=== PATIENT | female | born 1950 | race Caucasian/White ===

== ENCOUNTER → 2017-01-17 | Outpatient (CLI) | payer BC ==
[~2017-01-17] MED LIST: ALEVE220 MG PO; CLARITIN10 MG PO; MULTIPLE VITAM1 EAC1 PO; PREMARIN0.45 MG PO; THERA-TABS M C1 EACH OR
== END ==
LOC: RAD 02:20
DX: Z12.31 Encounter for screening mammogram for malignant neoplasm of breast (principal)

== ENCOUNTER → 2018-02-02 | Outpatient (CLI) | payer BC | LOC: RAD 01-18 01:06 | DX: Z12.31 Encounter for screening mammogram for malignant neoplasm of breast (principal) ==

== ENCOUNTER → 2018-06-14 | Outpatient (CLI) | payer OTHER | LOC: RAD 15:30 | DX: R05 Cough (principal); G89.29 Other chronic pain ==

== ENCOUNTER 2019-01-21 08:55 | Inpatient (IN) | payer OTHER ==
[~2019-01-21] VITALS: Ht 167.6 cm; Wt 54.4 kg
[2019-01-21 15:12] LABS: ABSOLUTE NEUTROPHILS 10.4 thou/uL (1.4-8.2); BASOPHILS 0.2 % (0.0-2.0); HEMATOCRIT 36.2 % (37.0-47.0); HEMOGLOBIN 12.3 gm/dL (12.0-15.0); LYMPHOCYTES 6.5 % (24.0-44.0); MCH 34.9 pg (26.0-34.0); MCV 102.7 fL (80.0-100.0); MONOCYTES 8.3 % (1.0-8.0); PLATELET COUNT 247 thou/uL (150-400); RBC 3.53 mil/uL (4.20-5.00); RDW 11.7 % (10.5-14.5); WBC 12.3 thou/uL (4.0-11.0)
[2019-01-21 15:27] LABS: PROTIME 10.6 Seconds (9.3-11.4)
[2019-01-21 15:32] LABS: ALBUMIN 3.7 g/dL (3.4-5.0); CALCIUM 9.2 mg/dL (8.5-10.1); CREATININE 0.6 mg/dL (0.6-1.0); POTASSIUM 3.4 mmol/L (3.5-5.1); TOTAL BILIRUBIN 0.9 mg/dL (<0.1-1.0); TOTAL PROTEIN 7.1 g/dL (6.4-8.2)
--- NOTE | 2019-01-21 15:49 | NUR ---
INITIAL ASSESSMENT: Pt evaluated for d/c planning needs. Reviewed chart and spoke with nurse, pt and pt's sister. Pt is alert and oriented. Pt lives in house with spouse. 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 Pt has walker and w/c at home. Pt has not had home health in the past. Pt plans on returning home on d/c from hospital. Will remain available to assist as needed.
[2019-01-21 18:18] VITALS: BP 105/62
[2019-01-21 20:53] VITALS: BP 117/52
[2019-01-22] VITALS (8 sets, daily range): BP systolic 114–152; BP diastolic 58–83
--- NOTE | 2019-01-22 04:30 | NUR ---
ASSUMED PT CARE AROUND 1900. A&OX4. C/O RIGHT ARM AND RIGHT PELVIC PAIN. PO PAIN MEDICATION GIVEN INDICATED. PT SLEPT OFF AND ON DURING THE NIGHT. CALLED OUT APPROPRIATELY FOR BEDPAN. PT C/O PELVIC PAIN WITH TURNING IN BEDL; SHE DID NOT WANT TO BE MOVED MUCH BY NURSING STAFF. PT IS ABLE TO HELP MOVE HERSELF IN THE BED. RIGHT ELBOW BRUISED AND SLIGHTLY SWOLLEN. FALL PRECAUTIONS IN PLACE. IVF INFUSING ORDERED. NPO SINCE MIDNIGHT FOR SURGERY TODAY. PROGRESSING SLOWLY TOWARD POC GOALS.
--- NOTE | 2019-01-22 10:52 | NUR ---
pt. care assumed 0700. a&oX4. PT HAVING AN ORIF TODAY. WENT TO SURGERY AT 1040. SPOKE TO DR. BOWEN TO RECONCILE HOME MEDS AND GET PT PN CIWA PROTOCOL AND ON A NICOTINE PATCH FOR SMOKING SENSATION. PT. IS ON BEDREST DUE TO PELIC FRACTURE. PT IS WAITING IN HER ROOM. BED LOCKED IN LOW POSITION AND CALL LIGHT WITHIN REACH.
[2019-01-22 17:35] LABS: PHOSPHORUS 3.3 mg/dL (2.5-4.9)
--- NOTE | 2019-01-22 22:18 | NUR ---
ASSESSMENT COMPLETED. PT IS ALERT AND ORIENTED. SLIGHTLY FORGETFUL. PT IS S/P R OLECRANON ORIF.SPLINT IN PLACE. PT STILL HAS ZERO FEELING IN THE R ARM SINCE GETTING THE BLOCK PRIOR TO SURGERY. THERE IS HOWEVER WARMTH AND GOOD CAP REFILL TO THE R FINGERS/HAND. HAND IS ELEVATED ON PILLOW. PT DENIES PAIN. SHE IS ON BEDREST- HAS NOT NEEDED A BEDPAN SO FAR.SCDS IN PLACE. CIWA OF ZERO AT THIS TIME.PT REPORTS FEELING CALM AND WITH NO CONCERNS. IV FLUIDS INFUSING LEJ. AFEBRILE.CALL LIGHT WITHIN REACH. WILL CONTINUE WITH POC TILL EOS.
[2019-01-23 04:44] VITALS: BP 131/68
[2019-01-23 05:37] LABS: HEMATOCRIT 28.6 % (37.0-47.0)
[2019-01-23 05:44] LABS: POTASSIUM 4.1 mmol/L (3.5-5.1)
[2019-01-23 06:04] LABS: HEMOGLOBIN 9.7 gm/dL (12.0-15.0)
--- NOTE | 2019-01-23 07:44 | NUR ---
PATIENT HAD SURGERY ON HER ELBOW YESTERDAY, WILL NEED POST-OP ORDERS BEFORE BEING ABLE TO EVALUATE.
[2019-01-23 08:07] VITALS: BP 134/73
--- NOTE | 2019-01-23 12:20 | O ---
[facility] [place] [address] OPERATIVE REPORT Name: ZAINAB COBOS Room #: 446-P ADM IN M.R.#: [id number] Admission: 01/21/19 Attend Phys: Mike Mayers MD Discharge: Date of : 48 Report #: [id number] THIS REPORT FOR: //name// CC: Javad Vázquez DATE OF SERVICE: 01/22/2019 PREOPERATIVE DIAGNOSIS: Right olecranon fracture. POSTOPERATIVE DIAGNOSIS: Right olecranon fracture. PROCEDURE: Right olecranon open reduction and internal fixation. SURGEON: Guillermo Gu MD. KILN DRAWER: Alexa Courtney. ANESTHESIA: General. ESTIMATED BLOOD LOSS: Minimal. DRAINS: No drains. TOURNIQUET TIME: 40 minutes. DESCRIPTION OF PROCEDURE: The patient was brought to the operating room, where she was placed under general anesthesia. Once under adequate general anesthesia, her right upper extremity was prepped and draped in a sterile manner. The extremity was elevated, exsanguinated, and tourniquet placed, 300 mmHg. A posterior incision over the olecranon was then made. This was dissected down through the soft tissue directly to the fracture site, any hematoma was evacuated from the fracture site, and the fracture was then subsequently reduced with a pair of K-wires. The plate from the Eloise elbow tray was then placed. Subsequent to this, a longitudinal "home run screw" was placed from the posterior olecranon and down the shaft of the ulna. This was 50 mm in length. Further fixation was achieved with 3 locking screws distally in the plate. Excellent fixation and alignment was achieved as verified under fluoroscopy. Once complete, the wound was irrigated copiously and closed with 2-0 Vicryl in subcutaneous tissues and denise were used for the skin. The wounds were dressed with Xeroform and 4 x 4s and sterile soft compressive dressing was placed along with a posterior splint. Tourniquet was let down at approximately 40 minutes. Fingers were pink and warm with good capillary [facility] [address] [place] [address] OPERATIVE REPORT Name: CHANDRIKAZAINAB Room #: 446-P ADM IN M.R.#: [id number] Admission: 01/21/19 Attend Phys: Mike Mayers MD Discharge: Date of : 48 Report #: [id number] refill. There were no complications from the procedure. The patient tolerated the procedure well and went to the recovery room without incident. <ELECTRONICALLY SIGNED> By: Guillermo Gu MD 01/23/19 1220 [id number] Guillermo Gu MD /nt
--- NOTE | 2019-01-23 16:08 | NUR ---
PATIENT SEEN BY DR. WALKER THIS DATE. PATIENT IS A CANDIDATE FOR ACUTE REHAB. REQUEST FOR AUTHORIZATION SENT TO [facility] THIS DATE. WILL AWAIT RESPONSE. THANK YOU FOR THIS REFERRAL.
[2019-01-23 16:35] VITALS: BP 158/67
[2019-01-23 19:31] VITALS: BP 157/90
[2019-01-24 05:21] VITALS: BP 157/77
[2019-01-24 06:20] LABS: URINE BILIRUBIN NEGATIVE (Negative); URINE BLOOD NEGATIVE (Negative); URINE CLARITY CLEAR; URINE COLOR YELLOW; URINE GLUCOSE-RANDOM* NEGATIVE (Negative); URINE KETONES NEGATIVE (Negative); URINE LEUKOCYTES-REFLEX NEGATIVE (Negative); URINE NITRITE-REFLEX NEGATIVE (Negative); URINE PROTEIN (DIPSTICK) NEGATIVE (Negative); URINE UROBILINOGEN 0.2 E.U./dl (0.2-1.0)
[2019-01-24 06:28] LABS: CALCIUM 8.6 mg/dL (8.5-10.1); CREATININE 0.5 mg/dL (0.6-1.0); MAGNESIUM 1.6 mg/dL (1.8-2.4); PHOSPHORUS 3.7 mg/dL (2.5-4.9); POTASSIUM 3.9 mmol/L (3.5-5.1)
[2019-01-24 07:50] VITALS: BP 146/82
[2019-01-24] MEDS ORDERED: MIRALAX17 GM PO (14:44)
[2019-01-24] MEDS ORDERED: LORAZEPAM 22 MG/1 ML IV PUSH ×2 (14:44)
[2019-01-24] MEDS ORDERED: ENOXAPARIN40 MG/0.1 SUBQ (14:44)
[2019-01-24] MEDS ORDERED: PEPCID20 MG PO (14:44)
[2019-01-24] MEDS ORDERED: LORAZEPAM 1 MG T1 MG PO ×2 (14:44)
[2019-01-24] MEDS ORDERED: NICOTINE TRANSD14 M1 TRANSDERM (14:44)
[2019-01-24] MEDS ORDERED: ACETAMINOPHEN325 M1 PO (14:44)
[2019-01-24] MEDS ORDERED: VITAMIN B-1100 M2 PO (14:44)
[2019-01-24] MEDS ORDERED: HYDROCODON-ACE1 EAC7 PO ×2 (14:44)
[2019-01-24 15:58] LABS: HEMATOCRIT 30.1 % (37.0-47.0); HEMOGLOBIN 10.1 gm/dL (12.0-15.0); MCH 35.7 pg (26.0-34.0); MCHC 33.7 g/dL (28.0-37.0); MCV 106.2 fL (80.0-100.0); RBC 2.83 mil/uL (4.20-5.00); RDW 12.2 % (10.5-14.5); WBC 10.2 thou/uL (4.0-11.0)
--- NOTE | 2019-01-24 18:27 | NUR ---
PT CARE ASSUMED AT 0700. A&Ox4. PT UP TO THE COMMODE.PT. TRANSFERRIG TO 5N. REPORT GIVEN TO WONG. PT. DISCHARGED AT 1700. PT. ON A REGULAR DIET
--- NOTE | 2019-01-29 16:07 | HC ---
[facility] [place] [address] CONSULTATION Name: ZAINAB COBOS Room #: 446-P [facility] IN M.R.#: [id number] Admission: 01/21/19 Attend Phys: Mike Mayers MD Discharge: 01/24/19 Date of : 48 Report #: [id number] THIS REPORT FOR: //name// CC: Trever Mayers DATE OF SERVICE: 01/23/2019 HISTORY OF PRESENT ILLNESS: The patient is a 68-year-old white female who had a fall at home on 01/20/2019 going down some steps. She had the onset of right elbow pain as well as pelvic pain. She was noted to sustain a right olecranon fracture as well as a nondisplaced fracture of her posterior right inferior pubic ramus. The patient has been followed by Orthopedics, underwent open reduction and internal fixation of the right olecranon fracture on 01/22/2019 and is limited to nonweightbearing of that right upper extremity and has had her right arm casted in flexion. As far as the pelvic fracture, she is allowed weightbearing as tolerated, bilateral lower extremities with pain with movement as expected. We are seeing the patient in rehabilitation medicine consultation. PAST MEDICAL HISTORY: Includes hypertension and history of breast cancer. HABITS: Include tobacco abuse. Current every day smoker, half a pack to pack-a-day. There is a history of some alcohol usage daily, apparently at least a couple of beers. PAST SURGICAL HISTORY: Surgeries left breast biopsy, appendectomy, and tubal surgery. ALLERGIES: No known drug allergies. MEDICATIONS: Please see the full medication listing. SOCIAL HISTORY: Lives in a house, 2 steps in. She notes that she can stay on the ground floor when she gets in a house and her bedroom is on the ground floor. She lives there with her . He is essentially retired on a fixed income. 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 has had problems with back surgery and apparently has back issues ongoing and is to have an epidural at the end of this week. The patient premorbidly was fully ambulatory without gait aids. REVIEW OF SYSTEMS: Did not offer any current complaints of chest pain, shortness of breath, or abdominal discomfort. PHYSICAL EXAMINATION: GENERAL: A 68-year-old slender white female, in no obvious distress. VITAL SIGNS: Last recorded temperature 98.6, pulse 70, respirations 17, blood [address] [address] CONSULTATION Name: ZAINAB COBOS Room #: 446-P [facility] IN .R.#: [id number] Admission: 01/21/19 Attend Phys: Mike Mayers MD Discharge: 01/24/19 Date of : 48 Report #: [id number] pressure 134/73. She is a good historian, very motivated. HEENT: Facies are symmetric. EXTREMITIES: Functional range of motion and strength of the left upper extremity. Right upper extremity is in a long arm cast, set in flexion. She is able to move the wrist and can move the fingers and I could not detect any obvious intrinsic weakness. 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 Lower extremity, she has some discomfort moving both lower extremities. Strength is probably a grade 4/5 to 4-/5 with some discomfort with testing. No calf swelling. Tone appeared to be intact. Functionally, she is min assist sit to stand. Gait 5-6 shuffled steps min assist. ASSESSMENT: A 68-year-old white female with the following problem list: 1. Multiple orthopedic trauma, post fall. 2. Right olecranon fracture, status post open reduction and internal fixation on 01/22/2019, nonweightbearing right upper extremity. 3. Nondisplaced posterior right inferior pubic ramus fracture. She is allowed weightbearing as tolerated bilateral lower extremities. 4. History of breast cancer, status post radiation. 5. History of tobacco and alcohol usage. 6. Hypertension. PLAN: The patient is a candidate and would benefit from a short acute in-hospital inpatient rehabilitation stay. The goal would be to work with her, so she can achieve the functional independence to return back to the home setting. She does have the 2 steps in and her has significant back issues and would not be able to give her much of any assistance. Goal would be to return back home from the rehab [facility] when she is further able as far as independence with basic functional mobility and ADLs. She is very motivated to return back to the home setting. Insurance precertification issues to be checked regarding a short acute in-hospital inpatient rehabilitation stay. <ELECTRONICALLY SIGNED> By: Iggy Dykes MD 01/29/19 1607 [id number] Iggy Dykes MD /[facility]
== END 2019-01-24 16:59 | DRG 511 ==
LOC: CAT 08:55 → RAD 08:55 → 4S 12:33 → ENTRNSPT 01-24 16:23 → 4S 01-24 16:59
PROVIDERS: Hospitalist; Nurse Practitioner; Orthopaedic Surgery Foot and Ankle Surgery; ADMIT Internal Medicine
PROC: 0PSK04Z Reposition Right Ulna with Internal Fixation Device, Open Approach (ICD-10-PCS; principal; 2019-01-22)
DX: S32.591A Other specified fracture of right pubis, initial encounter for closed fracture (principal); E87.1 Hypo-osmolality and hyponatremia; S52.021A Displaced fracture of olecranon process without intraarticular extension of right ulna, initial encounter for closed fracture; I10 Essential (primary) hypertension; F17.210 Nicotine dependence, cigarettes, uncomplicated; D72.829 Elevated white blood cell count, unspecified; E87.6 Hypokalemia; E87.8 Other disorders of electrolyte and fluid balance, not elsewhere classified; W18.39XA Other fall on same level, initial encounter; Z85.3 Personal history of malignant neoplasm of breast; Z90.49 Acquired absence of other specified parts of digestive tract; Z71.6 Tobacco abuse counseling; Z92.3 Personal history of irradiation; Y93.89 Activity, other specified; Y92.89 Other specified places as the place of occurrence of the external cause; Y99.8 Other external cause status
CPT/HCPCS: 10102; 50010; 50101; 50386; 51739; 55430; 56524; 56527; 57091; 62110; 62900; 64039; 70005

== ENCOUNTER 2019-01-24 10:35 | Inpatient (IN) | payer OTHER ==
[~2019-01-24] VITALS: Ht 167.6 cm; Wt 54.9 kg
[2019-01-24] MEDS ORDERED: MIRALAX17 GM PO (14:44)
[2019-01-24] MEDS ORDERED: ENOXAPARIN40 MG/0.1 SUBQ (14:44)
[2019-01-24] MEDS ORDERED: LORAZEPAM 1 MG T1 MG PO ×2 (14:44)
[2019-01-24] MEDS ORDERED: HYDROCODON-ACE1 EAC7 PO ×2 (14:44)
[2019-01-24] MEDS ORDERED: ACETAMINOPHEN325 M1 PO (14:44)
[2019-01-24] MEDS ORDERED: NICOTINE TRANSD14 M1 TRANSDERM (14:44)
[2019-01-24] MEDS ORDERED: LORAZEPAM 22 MG/1 ML IV PUSH ×2 (14:44)
[2019-01-24] MEDS ORDERED: PEPCID20 MG PO (14:44)
[2019-01-24] MEDS ORDERED: VITAMIN B-1100 M2 PO (14:44)
--- NOTE | 2019-01-24 16:31 | NUR ---
chart review. cm visited with pt, mackenzie and pt sister at bedside. intro to cm, dcp, and team meeting. pt is a & o x 3, pleasant and able to make her needs know. per elizabeth and " live in house, 2 steps to enter with out hand rail, 12 stairs with 1 right side hand rail to 2nd floor, 12 stairs with 1 hand rail to basement. everything is on main level though. independent. no dme, drive, manage own medication. only on blood pressure med. dr simmons pcp. "/anjali. will cont following as needed for dc needs.
[2019-01-24 18:00] VITALS: BP 157/76
--- NOTE | 2019-01-24 19:21 | NUR ---
ASSUMED CARE OF PT AT 1730. PT IS A&OX4, ADMISSION VITAL SIGNS OBTAINED, PT ASSISTED INTO BED, ASSESSMENT COMPLETED. HR REGULAR, LUNG SOUNDS CLEAR BILATERALLY IN ALL LOBES. ABDOMEN SOFT AND SOUNDS PRESENT IN ALL QUADRANTS. PERIPHERAL PULSES +2 IN ALL EXTREMITIES WITH CAPILARY REFILL WNL. BRUISE TO RIGHT HIP. CAST TO RIGHT ARM IN PLACE, +2 PITTING EDEMA TO RIGHT HAND NOTED. WBAT AND PIVOT TRANSFER TO BEDSIDE COMMODE. PT HAD FAMILY BRING OUTSIDE FOOD IN. PT EATING AT SHIFT CHANGE, REPORT GIVEN TO ONCOMMING NURSE. FALL PRECAUTIONS IN PALCE AND NURSING WILL CONTINUE TO MONITOR.
[2019-01-24 19:22] VITALS: BP 183/81
--- NOTE | 2019-01-25 02:02 | NUR ---
PAIN MED AT HS HELPFUL FOR SIGNIFICANT PELVIC PAIN. UP TO BSC WITH GAIT BELT SUPPORT; SMALL STEPS ENCOURAGED. PATIENT FELL FIVE DAYS AGO AND HAS NOT HAD BM SINCE THEN; SHE STATES THIS IS NOT UNUSUAL FOR HER. CONSENTS SIGNED, MDs INFORMED OF ROOM CHANGE.
[2019-01-25 05:52] LABS: HEMATOCRIT 28.1 % (37.0-47.0); HEMOGLOBIN 9.7 gm/dL (12.0-15.0); MCHC 34.6 g/dL (28.0-37.0); MCV 104.2 fL (80.0-100.0); RBC 2.7 mil/uL (4.20-5.00)
[2019-01-25 06:04] LABS: CALCIUM 8.7 mg/dL (8.5-10.1); CREATININE 0.6 mg/dL (0.6-1.0); POTASSIUM 3.1 mmol/L (3.5-5.1)
[2019-01-25 08:07] VITALS: BP 174/102
--- NOTE | 2019-01-25 12:25 | NUR ---
Nutrition: RD received consult related to wound. Admitted with multiple orthopedic trauma, post fall and is S/P ORIF on 01/22 for right olecranon fx. Wound is surgical. Pt on regular diet not eating much as dislikes food. Discussed alternative menu choices available and also encouraged outside food as on regular diet. Pt plans to have bring in food often. PO < 50% of meals. RD discussed need for good nutrition for healing and reviewed protein sources. Provided milk from [employer] for lunch. Refuses offer of supplements at this time. Weights stable around 120# for as long as pt can remember. On MVI, thiamine. Currently with low K, Mg-replacing. Low nutrition risk for now.
--- NOTE | 2019-01-25 12:29 | NUR ---
Nutrition followup: pt eating 100% of meals on renal diet. Weights fluctuate 108-121# past 3 weeks. Current 114#, fluctuations related to fluid status/dialysis. On dialysis today. Pt has refuses multiple offers of diet education from RD. Materials have been provided. Change to low nutrition risk.
[2019-01-25 15:54] LABS: MAGNESIUM 1.8 mg/dL (1.8-2.4)
[2019-01-25 19:25] VITALS: BP 119/73
--- NOTE | 2019-01-25 19:34 | NUR ---
ASSUMED CARE OF PT AT 0715. PT IS A&OX4. BLOOD PRESSURE ELEVATED, PROVIDER AWARE AND BLOOD PRESSURE MEDICATIONS ORDERED, BLOOD PRESSURE 133/78 FOLLOWING ADMISSION OF MEDICAITON. REPORTS PAIN IN RIGHT ELBOW, PAIN MANAGED WITH PO MEDICAITONS AND PT PARTICIPATED IN SCHEDULED THERAPIES. NO BOWEL MOVEMENT THIS SIFT, PT REPORTS THAT SHE REGULARLY GOES WITHOUT A BOWEL MOVEMENT FOR 1 WEEK. BOWEL SOUNDS ACTIVE IN ALL QUADRANTS. WBAT AND UP WITH ASSISTANCE, CALLS APPROPRIATELY. POTASSIUM 3.1 THIS AM, PROVIDER AWARE AND ORDERED PO POTASSIUM. FALL PRECAUTIONS IN PLACE AND NURSING WILL CONTINUE TO MONITOR.
--- NOTE | 2019-01-26 00:27 | NUR ---
PT ASSESSMENT DONE AND VSS. MEDS GIVEN AND WELL TOLERATED. FALL PRECAUTIONS IN PLACE. HOURLY ROUNDING. CALL LIGHT IN REACH. WILL CONTINUET TO MONITOR.
[2019-01-26 10:53] VITALS: BP 144/83
--- NOTE | 2019-01-26 15:50 | NUR ---
ASSUMED CARE OF PT AT 0715. PT IS A&OX4 AND VITAL SIGNS ARE STABLE. REPORTS PAIN IN RIGHT ELBOW, MANAGED WITH PO MEDICAITONS, PARTICIPATED IN SCHEDULED THERAPIES. RIGHT ARM IN CAST AND PLACED IN ENVELOPE SLING THIS SHIFT. LUE LIMB ALERT. WBAT AND UP TO COMMODE. DENIES CONSTIPATION, BOWEL SOUNDS ACTIVE IN ALL QUADRANTS, NO BOWEL MOVEMENT REPORTED SINCE 01/20/19, ADMINISTERED MIRALAX PER ORDERS, PT REFUSED ADDITIONAL BOWEL MEDICATIONS. EDEMA +2 TO THE RIGHT HAND, +2 PERIPHERAL PULSE, HAND IS WARM, DENIES NUMBNESS OR TINGLING. FAMILY AT THE BEDSIDE. FALL PRECAUTIONS IN PALCE AND NURSING WILL CONTINUE TO MONITOR.
[2019-01-26 20:25] VITALS: BP 141/92
--- NOTE | 2019-01-26 23:02 | NUR ---
PT ASSESSMENT COMPLETED AND VSS. MEDS GIVEN ORDERED AND WELL TOLERATED. FALL PRECAUTIONS IN PLACE. PT IS PLEASED WITH HER PROGRESS AND STATES THAT SHE IS MOVING MUCH BETTER NOW. SLING IN PLACE ON R ARM. HYDROCONDONE HELPFUL FOR LEVEL 8 PAIN. PT REFUSED SUPPISITORY OR ANYTHING ELSE FOR CONSTIPATION. SHE STATES THAT SHE WANTS TO WAIT ONE MORE DAY TO SEE WHAT HAPPENS AND THAT SHE NORMALLY ONLY HAS A BM 1 TIME A WEEK. SLEEPING WELL. WILL CONTINUE TO MONITOR FREQUENTLY. R HAND NEURO CHECK WNL.
[2019-01-27 09:00] VITALS: BP 151/84
--- NOTE | 2019-01-27 15:45 | NUR ---
ASSUMED CARE OF PT AT 0715. PT IS A&OX4 AND VITAL SIGNS ARE STABLE. BLOOD PRESSURE MEDICATION GIVEN AND B/P 128/71 FOLLOWING ADMINISTRATION. SLING AND CAST TO RIGHT ARM IN PLACE, +2 RADIAL PULSE, CAPILLARY REFILL WNL, EXTREMITY IS WARM, DUSKY APPEARANCE, NO C/O NUMBNESS OR TINGLING. PAIN REPORTED IN RIGHT ELBOW, MANAGED WITH PO MEDICAITONS. LEFT ARM RESTRICITION, HX OF LUMPECTOMY. PT IS IRRITABLE, BUT DENIES ANXIETY OR IRRITABILITY, ALTHOUGH NOTED BY SPOUSE. PT REPORTS SOME CRAVINGS FOR CIGARETTES. PT CALLING FOR ASSISTANCE APPROPRIATLEY. FALL PRECAUTIONS IN PLACE AND NURSING WILL CONTINUE TO MONITOR.
[2019-01-27 19:31] VITALS: BP 137/80
--- NOTE | 2019-01-27 22:56 | NUR ---
PT ASSESSMENT COMPLETED AND VSS. MEDS GIVEN ORDERED AND WELL TOLERATED. FALL PRECAUTIONS IN PLACE. 0 BM FOR SEVERAL DAYS. TRYED TO ENCOURAGE PT TO TAKE A SUPPOSITORY THIS EVENING. PT REFUSED BUT SAID SHE MAY BE WILLING IN THE MORNING IF SHE HAS NOT HAD A BM YET. PRN PAIN MEDICATION HELPFUL FOR LEVEL [address] ON R ARM. PT SLIGHLY ANXIOUS AT TIMES. SLEEPING WELL. WILL CONTINUE TO MONITOR FREQUENTLY. SWELLING IN R HAND WENT WAY DOWN. NEURO CHECKS ON R HAND WNL.
[2019-01-28 09:00] VITALS: BP 144/76
--- NOTE | 2019-01-28 17:17 | NUR ---
PATIENT EDUCATED ON PAIN MANAGEMENT, DOES NOT REQUEST PAIN MEDICATION, ATTEMPTING TO HOLD OFF ON MEDICATION. EDUCATION PROVIDED ON PAIN MANAGEMENT AND ENCOURAGED TO CALL WHEN EXPERIENCING PAIN. PATIENT REPORTS PAIN 9/10, RATED 8/10 ON RE-ASSESSMENT. PT STATES THAT "8 FEELS LIKE PAIN RELIEVED. I FEEL BETTER." STATES THAT YES PAIN FEELS MANAGED WHEN ASKED IF IT IS MANAGED. PT CALLS APPROPRIATELY FOR ASSIST. UP WITH 1 PERSON ASSIST USING ASSIST DEVICES. FALL PRECAUTIONS IN PLACE, WORKED WITH THERAPIES THIS SHIFT. PT GIVEN MIRALAX AND SENNA THIS SHIFT PER ORDERS. PT REFUSED MAG CITRATE, STATES THAT SHE WANTS TO CONTINUE TO HAVE BM ON HE OWN. REPORTS THAT SHE FREQUENTLY DOES NOT HAVE BOWEL MOVEMENTS EXCEPT FOR EVERY 4-5 DAYS.
[2019-01-28 19:02] VITALS: BP 145/86
--- NOTE | 2019-01-29 03:11 | NUR ---
PATIENT APPRECIATES COFFEE, RIGHT ARM SLING, PAIN PILLS AT HS. UP TO BSC WITH STANDBY ASSIST. ENCOURAGED TO TAKE PAIN MEDS APPROX HALF HOUR PRIOR TO PHYSICAL THERAPY. PLEASANT, PLAYING SOLITARE ON TABLET LAPTOP.
[2019-01-29 09:00] VITALS: BP 169/90
--- NOTE | 2019-01-29 10:13 | NUR ---
DISCHARGE PLANNING. ANTICIPATED DISCHARGE TO HOME PER UNIT CM. PATIENT IN NEED OF REUBEN WALKER FOR HOME USE. PATIENT REFERRAL AND RX FOR REUBEN WALKER FAXED TO [facility]. CALL PLACED TO KASSANDRA TO NOTIFY OF REFERRAL AND PATIENTS NEED FOR REUBEN WALKER. KASSANDRA STATES THAT [facility] DO[facility] SUPPLY REUBEN WALKERS AND WILL NOTIFY HER TEAM TO FACILITATE PATIENTS WALKER PRIOR TO DISCHARGE. FOLLOWING.
--- NOTE | 2019-01-29 12:19 | NUR ---
provider plus and nicolas unable to get isabelle walker. referral to be sent to [facility].
--- NOTE | 2019-01-29 19:53 | NUR ---
assumed care of pt at 0715. pt is a&ox4 and vital signs are stable. pt reports pain 8/10 in pelvis and right arm. pain managed with po medicaitons, participated in scheduled therapies. pt has some irritablity, managed with pain management and promt assistance. cast to right arm, no noted edema, peripheral pulse and capillary refill wnl. limb restriction to lue due to hx of lumpectomy. calls appropriately, fall precatuions in place and nursing will continue to monitor.
[2019-01-29 20:15] VITALS: BP 148/68
--- NOTE | 2019-01-30 02:52 | NUR ---
PT ASSESSMENT DONE AND VSS. MEDS GIVEN AND WELL TOLERATED. FALL PRECAUTIONS IN PLACE. SLEEPING WELL. HOURLY ROUNDING. CALL LIGHT IN REACH. WILL CONTINUE TO MONITOR.
[2019-01-30 04:24] LABS: CALCIUM 9.3 mg/dL (8.5-10.1); CREATININE 0.7 mg/dL (0.6-1.0); POTASSIUM 4.3 mmol/L (3.5-5.1)
[2019-01-30 08:38] VITALS: BP 132/85
--- NOTE | 2019-01-30 10:22 | NUR ---
ASSUMED CARE OF PT AT 0715. TOOK MELATONIN LAST NIGHT. REPORTS SLEPT GOOD. PT IS A&OX4 AND VITAL SIGNS ARE STABLE. REPORTS PAIN IN RIGHT ELBOW, RIGHT PELVIX, HAS HX OF FALL. RATES PAIN 8/10, PRN HYDROCODONE 2TABLETS GIVEN FOR PAIN. PT SAID PAIN MEDS DOESN'T HELP MUCH. NOTIFIED CIARA TO ADJUST PAIN MED. OFFERED SUPPORTIVE CARE. PT PARTICIPATES IN SCHEDULED THERAPIES. RIGHT ARM IN CAST AND PLACED IN ENVELOPE SLING THIS SHIFT. LUE LIMB ALERT. WBAT AND UP TO COMMODE. DENIES CONSTIPATION, BOWEL SOUNDS ACTIVE IN ALL QUADRANTS, LAST BM WAS 2 DAYS AGO. ADMINISTERED MIRALAX PER ORDERS. EDEMA +2 TO THE RIGHT HAND, +2 PERIPHERAL PULSE, HAND IS WARM, DENIES NUMBNESS OR TINGLING. FALL PRECAUTIONS IN PALCE AND NURSING WILL CONTINUE TO MONITOR.
--- NOTE | 2019-01-30 12:41 | NUR ---
DISCHARGE PLANNING. DISCHARGE PLAN IS TO HOME WITH HOME HEALTH SERVICES. PATIENT REFERRAL FAXED TO [facility] FOR [facility] NEEDS. ANTICIPATED DISCHARGE IS PLANNED FOR 02/06 PER UNIT CM. [facility]. FOLLOWING.
[2019-01-30 19:34] VITALS: BP 151/88
--- NOTE | 2019-01-31 02:25 | NUR ---
PT ASSESSMENT COMPLETED AND VSS. MEDS GIVEN ORDERED AND WELL TOLERATED. FALL PRECAUTIONS IN PLACE. UP TO THE BATHROOM WITH ASST/GAIT/WALKER. PAIN MEDICATION HELPFUL FOR LEVEL 8 PAIN. SLEEPING WELL. WILL CONTINUE TO MONITOR FREQUENTLY.
[2019-01-31 10:08] VITALS: BP 151/83
--- NOTE | 2019-01-31 17:05 | NUR ---
ASSUMED CARE OF PT AT APPROX 0700. PT IS LAERT AND ORIENTED, ASSESSMENT CHARTED. NAD NOTED THIS SHIFT. PT DOES STATE THAT PAIN IS WORSE AND NOT WELL CONTROLLED. NOTIFIED NO, XRAY ORDERED. BASED ON RESULTS OF XRAY NOTIFIED ORTHO. CT ORDERED. PT UPDATED ON POC. WILL CONT. TO MONITOR.
--- NOTE | 2019-01-31 18:23 | NUR ---
RESUMED CARE FROM PREVIOUS NURSE. NO CHANGES IN PATIENT CONDITION REPORTED BY PREVIOUS NURSE. FALL PRECAUTIONS IN PLACE AND NURSING WILL CONTINUE TO MONITOR.
[2019-01-31 19:56] VITALS: BP 175/95
--- NOTE | 2019-01-31 22:20 | NUR ---
PT ASSESSMENT DONE AND VSS. MEDS GIVEN AND WELL TOLERATED. FALL PRECAUTIONS IN PLACE. SLEEPING WELL. HOURLY ROUNDING. CALL LIGHT IN REACH. WILL CONTINUE TO MONITOR.
[2019-02-01 09:30] VITALS: BP 147/87
--- NOTE | 2019-02-01 12:34 | NUR ---
Nutrition followup: pt continues on rehab S/P ORIF for right olecranon fx. PO intake remains fair, average intake past 4 days, 41% of meals. Pt continues to refuse supplements. Has multiple snacks at bedside and family brings in food as pt requests. Today pt had a hamburger and fries from a restaurant. Orders meals as desired. On MVI, thiamine, Senna. Last BM today. Electrolytes now WNL. No new weight since 01/24. Prior stable weights reported. Requested RN to obtain new weight. If loss, will re-address supplementation.
--- NOTE | 2019-02-01 13:55 | H ---
[facility] [place] [address] HISTORY AND PHYSICAL Name: ZAINAB COBOS Room #: 509-P ADM IN M.R.#: [id number] Admission: 01/24/19 Attend Phys: Iggy Dykes MD Discharge: Date of : 48 Report #: [id number] THIS REPORT FOR: //name// CC: Iggy Mckay DATE OF SERVICE: 01/24/2019 HISTORY OF PRESENT ILLNESS: Please see my prior consult note dictation. See the history and physical as noted. Agree with the documentation, the physical examination findings and the assessment and plan. She has now been admitted for acute in-hospital inpatient rehabilitation. She is allowed weightbearing as tolerated bilateral lower extremities, post pelvic fracture and has the right upper extremity in a splint set in flexion. See the full history. PAST MEDICAL HISTORY, SOCIAL HISTORY, HABITS: MEDICATIONS: See the MAR. REVIEW OF SYSTEMS: No current complaints of chest pain, shortness of breath or abdominal discomfort. PHYSICAL EXAMINATION: GENERAL: She is pleasant. VITAL SIGNS: Temperature 99.2, pulse 89, respirations 16, blood pressure 157/76. NEUROLOGIC: Alert and appropriate. CHEST: Sounded clear to auscultation. CARDIOVASCULAR: Regular rate and rhythm. ABDOMEN: Bowel sounds positive, nontender. She is of slender build. EXTREMITIES: She has the right upper extremity in a flexed position at the elbow, can move the thumb and fingers. She does have some distal edema as expected. Lower extremities: She has some discomfort with gentle movement. Strength is a grade 3+/5 to possibly 4-/5. Tone is intact. There is no calf swelling. She is min assist sit to stand. Gait was a short distance mod assist 3 feet isabelle walker. ASSESSMENT: 1. Multiple orthopedic trauma, post fall. 2. Right olecranon fracture, status post open reduction and internal fixation on 01/22/2019, nonweightbearing right upper extremity. 3. Nondisplaced posterior right inferior pubic ramus fracture. Allowed weightbearing as tolerated bilateral lower extremities. 4. History of breast cancer, status post radiation. 5. History of tobacco and alcohol usage. 6. Hypertension. [facility] [address] [place] [address] HISTORY AND PHYSICAL Name: ZAINAB COBOS Room #: 509-P [facility] IN .R.#: [id number] Admission: 01/24/19 Attend Phys: Iggy Dykes MD Discharge: Date of : 48 Report #: [id number] PLAN: The patient is admitted for acute in-hospital inpatient rehabilitation. From a postadmission physician evaluation perspective, there are no relevant changes since the preadmission screening. Please see the above review of current and prior medical and functional conditions and comorbidities. Please see the patient's previous and current functional status. As far as risk of complications, the patient has multiple medical comorbidities as noted above. Initial plan of care involves the interdisciplinary acute inpatient rehabilitation program. Measurable functional goals would be for her to become modified independent or maximally independent with mobility and ADLs at a isabelle walker level. Prognosis is reasonably good. Estimated length of stay is probably at least 10 days to 2 weeks pending progress. Potential barriers would include her above noted medical comorbidities and her functional deficits and pain management issues with her healing fractures. <ELECTRONICALLY SIGNED> By: Iggy Dykes MD 02/01/19 1355 [id number] Iggy Dykes MD /PMT
[2019-02-01 19:30] VITALS: BP 120/66
--- NOTE | 2019-02-02 03:21 | NUR ---
ASSUMED CARE FROM DAYSHIFT PT UP TO [facility] DURING SHIFT CONTANTLY DRINKING COFFEE,ASK PT TO STOP AT 0200 SO SHE COULD GET SOME SLEEP TO BE RESTED FOR THERAPY IN AM , PT AGREED. NO PAIN MEDICATION GIVEN THIS SHIFT , PT STATES SHE ONLY HAVE PAIN WHEN GETTING UP TO [facility]. WILL CONINTUE WITH CURRENT PLAN OF CARE AND GUZMAN REPORT CHANGES OR ABNORMAL FINDINGS.
[2019-02-02 10:01] VITALS: BP 168/91
[2019-02-02 12:51] LABS: HEMATOCRIT 32.1 % (37.0-47.0); HEMOGLOBIN 10.8 gm/dL (12.0-15.0); MCH 35.3 pg (26.0-34.0); MCHC 33.7 g/dL (28.0-37.0); MCV 104.7 fL (80.0-100.0); RBC 3.06 mil/uL (4.20-5.00); RDW 12.3 % (10.5-14.5); WBC 10.1 thou/uL (4.0-11.0)
[2019-02-02 13:08] LABS: CALCIUM 9.5 mg/dL (8.5-10.1); CREATININE 0.7 mg/dL (0.6-1.0); MAGNESIUM 1.8 mg/dL (1.8-2.4); POTASSIUM 4.1 mmol/L (3.5-5.1)
--- NOTE | 2019-02-02 18:30 | NUR ---
AAOX4 VERY PLEASANT AND COOPERATIVE. WORKED WELL WITH THERAPIES. GOOD APPETITE FOR MEALS. RIGHT ARM IN SLING. TAKES NORCO FOR PAIN PRN WITH GOOD RELIEF. USES BSC ABLE TO TRANSFER WITH SBA. VOIDS CLEAR YELLOW URINE. SPOUSE WAS HERE TO VISIT.
[2019-02-02 19:40] VITALS: BP 153/92
[2019-02-03 05:16] LABS: HEMATOCRIT 32.4 % (37.0-47.0); MCH 35.8 pg (26.0-34.0); MCHC 33.8 g/dL (28.0-37.0); MCV 105.8 fL (80.0-100.0); RBC 3.06 mil/uL (4.20-5.00); RDW 12.5 % (10.5-14.5); WBC 9.3 thou/uL (4.0-11.0)
[2019-02-03 05:35] LABS: CREATININE 0.7 mg/dL (0.6-1.0); MAGNESIUM 1.9 mg/dL (1.8-2.4); POTASSIUM 3.9 mmol/L (3.5-5.1)
--- NOTE | 2019-02-03 05:36 | NUR ---
Pt. rested quietly at intervals during the night when checked on during frequent rounds. She did c/o sacral pain and was given po pain medication (see emar) with some relief noted. Bed alarm is on.
[2019-02-03 08:30] VITALS: BP 161/90
--- NOTE | 2019-02-03 18:29 | NUR ---
AAOX4 PLESANT AND COOPERTIVE. TAKES HYDRODODONE 1 TAB FOR PAIN WITH GOOD RELIEF. UP TO BSC WITH SBA VOIDS CLEAR YELLOW URINE. SPOUSE AT BEDSIDE FOR A VISIT TODAY. RIGHT ARM IN SLING. GOOD APPETITE FOR MEALS. REFUSES TO EAT MEALS IN DINING ROOM. WATCHS TV AND PLAYS ON IPAD.
[2019-02-03 19:00] VITALS: BP 144/81
--- NOTE | 2019-02-03 21:22 | HC ---
[facility] [place] [address] CONSULTATION Name: ZAINAB COBOS Room #: 509-P ADM IN M.R.#: [id number] Admission: 01/24/19 Attend Phys: Iggy Dykes MD Discharge: Date of : 48 Report #: [id number] THIS REPORT FOR: //name// CC: Iggy Mckay DATE OF SERVICE: 01/27/2019 NEUROBEHAVIORAL STATUS EXAM ATTENDING PHYSICIAN: Iggy Dykes MD PUTTY WORKER: Jeremiah Otoole, PhD CLINICAL PRESENTATION: The patient is a 68-year-old female admitted to the rehabilitation unit at [facility] for a comprehensive inpatient rehabilitation program to improve functional mobility, activities of daily living and self-care and mental status secondary to multiple orthopedic trauma, status post fall. She is reported to have been living at her home when she sustained a fall down three stairs. Her assessment on admission to the rehab unit is a right olecranon fracture, status post ORIF with nonweightbearing on 01/22/2019, nondisplaced right posterior pubic ramus fracture, anemia postop, hypertension, tobacco abuse, chronic alcohol abuse and a history of breast cancer, status post radiation. A complete description of her medical condition and history along with medications can be found in her medical record. Neuropsychological consultation was requested to provide assistance in the assessment of cognitive and emotional status and to provide recommendations and services. Prior to this most recent admission, she was living independently with her in her home. 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 She was independent with instrumental activities of daily living including driving. She has no children and is a high school graduate. TECHNIQUES UTILIZED: Clinical interview, review of medical records, staff consultation and behavioral observation, mini mental status exam 2 standard version, brief verbal fluency assessment, and family interview -- spouse. EXAMINATION FINDINGS: The patient was alert and partially cooperative with the assessment. She was irritable with increasing participation in the assessment. She describes her symptoms to include sleep, appetite and anxiety. She does not report difficulty with energy, memory or depression. She was smoking a pack of cigarettes a day and describes her anxiety as a result of withdrawal. Her reports her alcohol used to be excessive; however, the patient [facility] [address] [place] [address] CONSULTATION Name: ZAINAB COBOS Room #: 509-P [facility] IN M.R.#: [id number] Admission: 01/24/19 Attend Phys: Iggy Dykes MD Discharge: Date of : 48 Report #: [id number] denies excessive alcohol intake. Performance on the MMSE 2 brief version was in the borderline range with a raw score of 13-16, T score 35, percentile rank of 7. She was 3/3 for initial registration, 4/5 for orientation to time, 5/[address] and 1/3 for immediate recall of 3 items after a brief time delay and distraction. Performance on the MMSE 2 standard version was a raw score of 25-30, T score of 41, percentile rank of 18. She was 3/5 for serial sevens, 2/2 for naming, 1/1 for repetition, 3/3 for auditory comprehension. She was unable to copy a simple geometric design due to her right hand being immobilized as a result of her fall. Difficulty with concentration and immediate recall is suggested. Her performance in brief letter and category, in single letter and single category assessment report is extremely low. Letter fluency with a raw score of 3 and a T score of 22, which is less than 1%. Category fluency was a T score of 30 and percentile rank of 2, which is in the borderline range. However, the patient discontinued the tasks quickly because of irritability and decreased compliance. The patient is presenting with increased irritability along with variability in cognition. Deficits are suggested in memory, concentration and executive functioning/thought organization. DIAGNOSTIC IMPRESSION: Neurocognitive disorder -- unspecified -- with increased irritability -- extent to be determined likely in the mild to moderate range. Unspecified Anxiety Disorder. Alcohol use disorder -- persistent. RECOMMENDATIONS: The patient will benefit from increased assistance in the management of medication, nutrition and finances upon her return home. Alcohol treatment program is also recommended. She should discontinue alcohol use and will likely require a treatment program to facilitate her abstinence. A followup neuropsychological evaluation would also likely be a benefit to clarify cognitive status. At this time, her level of cognitive functioning is difficult to assess because of her irritability during the assessment and very likely reduced effort. I will consider the use of an antidepressant medication with anxiolytic features to assist in her overall adjustment. [address] [address] CONSULTATION Name: ZAINAB COBOS Room #: 509-P [facility] IN ..#: [id number] Admission: 01/24/19 Attend Phys: Iggy Dykes MD Discharge: Date of : 48 Report #: [id number] Thank you very much for allowing me to provide the consultation on this patient. <ELECTRONICALLY SIGNED> By: Jeremiah Otoole, PhD 02/03/192121 [id number] 07 Jeremiah Otoole, PhD /nt
--- NOTE | 2019-02-03 23:06 | NUR ---
PT ASSESSMENT DONE AND VSS. MEDS GIVEN AND WELL TOLERATED. FALL PRECAUTIONS IN PLACE. SLEEPING WELL. HOURLY ROUNDING. CALL LIGHT IN REACH. WILL CONTINUE TO MONITOR.
[2019-02-04 07:45] VITALS: BP 145/86
--- NOTE | 2019-02-04 12:07 | NUR ---
ASSUMED CARE OF THE PT AT 0700. PT IS STANDBY ASSIST. NO IV ACCESS. PT TAKE WHOLE PILLS WITH THIN LIQUIDS. PTS SKIN IS WARM AND INTACT. LAST BM WAS ON 02/02. PTS LUNG SOUNDS ARE CLEAR. RADIAL PULSES ARE STRONG. PT USES GAITBELT AND WALKER, FALL PRECAUTIONS ARE IN PLACE. VITAL SIGNS ARE NORMAL. PAIN BEING CONTROLLED BY PAIN MEDICATION, SEE EMAR. CALL LIGHT IS WITHIN REACH AND BED IN THE LOWEST POSITION, CHAIR IS LOCKED. WILL CONTINUE TO MONITOR THE PT.
[2019-02-04 20:09] VITALS: BP 121/73
--- NOTE | 2019-02-05 02:27 | NUR ---
PT ALERT AND ORIENTED X 4. AMB TO BR WITH WALKER AND ASSIST X 1. RIGHT ARM IN SLING. PT C/O BACK PAIN. SCHEDULED TYLENOL GIVEN AT HS. BED ALARM ON FOR SAFETY. PT APPEARS TO BE SLEEPING ON HOURLY ROUNDS.
--- NOTE | 2019-02-05 05:27 | NUR ---
PT REFUSED GAIT BELT AND YELLOW SLIPPERS WHEN GETTING UP TO BSC THIS MORNING.
[2019-02-05 08:00] VITALS: BP 139/78; BP 166/79
[2019-02-05 09:29] VITALS: BP 166/79
--- NOTE | 2019-02-05 11:15 | NUR ---
DISCHARGE PLANNING: PER CM, MULTIPLE REFERRALS HAVE BEEN SENT FOR HH, AND NONE OF THE COMPANIES ACCEPT THIS PT'S INSURANCE. CALL WAS PLACED TO NURSE NAVIGATOR THIS MORNING TO REQUEST ASSIST WITH FINDING A HH AGENCY NEARBY TO CARE FOR PT AT DISCHARGE. NURSE NAVIGATOR IS FLORENTIN AT [phone]. 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 SHE HAS TAKEN THE INFORMATION, AND IS FOLLOWING UP WITH PT'S INSURANCE CM TO SEE IF HH THEY MAY HAVE ALREADY STARTED THE PROCESS OF GETTING HH FOR HER. SHE IS TO CALL THE NURSE BATCH STILL OPERATOR BACK SOON POSSIBLE.
--- NOTE | 2019-02-05 11:51 | NUR ---
ASSUME PT CARE AT 0700. PT SAID SHE DIDN'T SLEEP WELL LAST NIGHT EVEN MELATONIN GIVEN. PT HAS PRN ATIVAN. ENCOURAGED PT TO TAKE NEED. PT A &OX4 PLESANT AND COOPERTIVE. C/O RIGHT ELBOW AND R PELVIS PAIN. RATES PAIN 8/10. GAVE EXTRA TYELNOL SCHEDULE THIS AM, BUT IT DIDN'T HELP. PRN HYDRODODONE GIVEN. PT HAS BEEN UP WITH THERAPY. UP TO BSC WITH SBA VOIDS CLEAR YELLOW URINE. SPOUSE AT BEDSIDE FOR A VISIT TODAY. RIGHT ARM IN SLING. CALL ORTHOPEDIC AND INFORMED THAT PT WILL D/C TOMORROW. RADHA SWIFT CALLED BACK AND WANTS PT TO MAKE APPOINTMENT WHEN SHE GET HOME TOMORROW. FOLLOW UP APPOINTMENT ADD TO PT'S [facility]. PT HAS GOOD APPETITE FOR MEALS. PT LIKES WATCHS TV AND PLAYS ON IPAD REFUSES TO GO TO DINNING ROOM FOR MEALS. OFFERED SUPPORTIVE CARE. ENCOURAGED PT TO VOICE HER NEEDS. REASSESSMENT PER CHART. LAST BM WAS YESTERDAY. FALL PRECAUTION IN PLACE. CALL LIGHT WITHIN REACH. WILL CONTINUE TO MONITOR.
--- NOTE | 2019-02-05 13:03 | NUR ---
team meeting, recommendation: pt will go home with denise in elbow. still trying to found hh that take her insurance, dc [facility] pt, ot, nursing. isabelle walker from [facility] already delivered. mod i today with isabelle walker in room. assist with medication and no drinking ethol
[2019-02-05 19:10] VITALS: BP 136/74
--- NOTE | 2019-02-06 04:15 | NUR ---
assumed care at approx 1900 evening 02/05. pt sitting up in bed at change of shift watching tv. pt alert and oriented x4, appropriate and cooperative. pt stated she was looking forward to being discharged. pt modified indep in room tolerating well. pt with cast to right arm with sling in place. pt sleeping off and on. call light in reach. will continue to monitor.
[2019-02-06] MEDS ORDERED: MELATONIN5 M1 PO (08:35)
[2019-02-06 08:37] VITALS: BP 124/74
[2019-02-06] MEDS ORDERED: ZESTORETIC 20-1 EAC3 PO (08:38)
[2019-02-06 09:10] VITALS: BP 124/74
[2019-02-06] MEDS ORDERED: NORCO 7.5-3251 EACH PO (09:13)
[2019-02-06] MEDS ORDERED: ASA5UEC PO (09:16)
--- NOTE | 2019-02-06 11:02 | PLAN ---
[facility] [place] [address] REHAB UNIT PLAN OF CARE Name: ZAINAB COBOS Room #: 509-P ADM IN M.R.#: [id number] Admission: 01/24/19 Attend Phys: Iggy Dykes MD Discharge: Date of : 48 Report #: [id number] THIS REPORT FOR: //name// CC: Iggy Mckay DATE OF SERVICE: 01/26/2019 PROGRESS NOTE/OVERALL PLAN OF CARE SUBJECTIVE: The patient is seen back today in followup. She is in no distress. Last recorded temperature 37, pulse 72, respirations 20, blood pressure 119/73. The patient has been working in therapies with transfers, min assist. Gait min assist 5 feet with the isabelle-walker. Lower body dressing, min assist; upper body dressing, moderate assistance. She has been pleasant and motivated. ASSESSMENT: 1. Multiple orthopedic trauma, post fall. 2. Right olecranon fracture, status post open reduction and internal fixation on 01/22/2019, nonweightbearing right upper extremity. 3. Nondisplaced posterior right inferior pubic ramus fracture. Allowed weightbearing as tolerated bilateral lower extremities. 4. History of breast cancer, status post radiation. 5. History of tobacco and alcohol use. 6. Hypertension. PLAN: The overall plan of care is based on the preadmission screen, post-admission physician evaluation and information garnered from therapy assessments. 1. Estimated length of stay is going to be probably at least 10 days to 2 weeks. 2. Medical prognosis is reasonably good. 3. Anticipated interventions includes the interdisciplinary acute inpatient rehabilitation program. 4. Anticipated functional outcomes would be for the patient to become modified independent with basic transfers, mobility and ADLs that she can return back to the home setting. 5. Discharge destination would be back home with her . She will need to return back. Nonweightbearing on that right upper extremity, but she is allowed weightbearing as tolerated on both lower extremities. 6. Expected therapy by discipline includes PT and OT 1-1/2 hours per day each [address] [address] REHAB UNIT PLAN OF CARE Name: CHANDRIKAZAINAB Room #: 509-P [facility] [place] ..#: [id number] Admission: 01/24/19 Attend Phys: Iggy Dykes MD Discharge: Date of : 48 Report #: [id number] five days a week throughout the duration of the acute inpatient rehabilitation stay. <ELECTRONICALLY SIGNED> By: Iggy Dykes MD 02/06/19 1102 [id number] Iggy Dykes MD /nt
[2019-02-06 11:21] VITALS: BP 124/74
--- NOTE | 2019-02-06 12:28 | NUR ---
ASSUMED CARE AT 0700. PAITENT IS ALERT AND ORIENTED X4. PATIENT MUSTAFA'S, FISHING TACKLE REPAIRER ARE EQUAL. LUNGS ARE CLEAR. ABD IS SOFT WITH BSX4. PATIENT ARM IS UP IN SLING CAST IS CLEAN AND DRY. GOOD CAP REFILL TO RIGHT HAND. PATIENT IS UP TO THE BSC TO VOID RUBIN COLORED URINE. UP ON SIDE OF BED FOR MEALS. FALL AND SAFETY PROTOCOLS IN PLACE. C/O PAIN IN HER RIGHT ARM AND BACK. MEDICATED WITH PRN PAIN MED. WILL CONINTUE TO MONITER.
--- NOTE | 2019-02-06 12:31 | NUR ---
DISCHARGE INSTRUCTIONS GIVENT TO PATIENT AND SPOUSE. SCRIPT GIVEN FOR PRN PAIN MEDS. PT D/C TO HOME WITH ALL HER BELONGINGS , D/C INSTRUCTIONS, W/C, AND CANE. AT BEDSIDE. PATIENT LEFT UNIT IN GOOD CONDITION. 'S FMLA FAXED TO DR. CONWAY OFFICE. PLAN APPT WITH DR. RESTREPO , [facility] AFTERNOON.
== END 2019-02-06 12:38 | disposition home health service (06) | DRG 563 ==
LOC: ENTRNSPT 02-06 12:03 → EDTRNSPTSTS 02-06 12:04
PROVIDERS: Internal Medicine; Nurse Practitioner Family; ADMIT Physical Medicine & Rehabilitation
DX: S52.031A Displaced fracture of olecranon process with intraarticular extension of right ulna, initial encounter for closed fracture (principal); S32.591A Other specified fracture of right pubis, initial encounter for closed fracture; D62 Acute posthemorrhagic anemia; I10 Essential (primary) hypertension; F17.210 Nicotine dependence, cigarettes, uncomplicated; W10.8XXA Fall (on) (from) other stairs and steps, initial encounter; Y93.01 Activity, walking, marching and hiking; R41.9 Unspecified symptoms and signs involving cognitive functions and awareness; F41.9 Anxiety disorder, unspecified; R26.81 Unsteadiness on feet; K59.00 Constipation, unspecified; G47.00 Insomnia, unspecified; Z85.3 Personal history of malignant neoplasm of breast; Z92.3 Personal history of irradiation; Z72.89 Other problems related to lifestyle; Z90.49 Acquired absence of other specified parts of digestive tract; Y92.098 Other place in other non-institutional residence as the place of occurrence of the external cause; Y99.8 Other external cause status; Z79.899 Other long term (current) drug therapy
CPT/HCPCS: 10112

== ENCOUNTER → 2019-03-29 | Outpatient (CLI) | payer OTHER ==
[~2019-03-29] MED LIST changes: +ACETAMINOPHEN325 M1 PO; +ASA5UEC PO; +ENOXAPARIN40 MG/0.1 SUBQ; +HYDROCODON-ACE1 EAC7 PO; +LORAZEPAM 1 MG T1 MG PO; +LORAZEPAM 22 MG/1 ML IV PUSH; +MELATONIN5 M1 PO; +MIRALAX17 GM PO; +NICOTINE TRANSD14 M1 TRANSDERM; +NORCO 7.5-3251 EACH PO; +PEPCID20 MG PO; +VITAMIN B-1100 M2 PO; +ZESTORETIC 20-1 EAC3 PO
== END ==
LOC: RAD 13:36
DX: Z12.31 Encounter for screening mammogram for malignant neoplasm of breast (principal)

== ENCOUNTER → 2020-09-18 | Outpatient (CLI) | payer OTHER | LOC: BC 09:50 | PROVIDERS: ATTEND Family Medicine | DX: Z12.31 Encounter for screening mammogram for malignant neoplasm of breast (principal); Z85.3 Personal history of malignant neoplasm of breast ==